=== PATIENT | female | born 1985 | race Caucasian/White ===

== ENCOUNTER 2024-11-03 17:00 | Emergency (ER) | payer BC, SELFPAY ==
--- NOTE | ~2024-11-03 | XR_ITS ---
CLINICAL HISTORY: pain 3 view left shoulder Comparison: None Findings: Bones intact. No dislocations. No significant arthritic change. No erosions. No radiopaque foreign body. IMPRESSION: 1. No acute findings This document has been electronically signed by: Thomas Medina MD on 11/03/2024 19:06:56
--- NOTE | ~2024-11-03 | XR_ITS ---
CLINICAL HISTORY: pain 4 views cervical spine Comparison: None Findings: Normal alignment. No acute fractures or dislocation. No significant degenerative change. Prevertebral soft tissues within normal limits. IMPRESSION: No acute findings. This document has been electronically signed by: Thomas Medina MD on 11/03/2024 19:09:13
[2024-11-03 18:07] VITALS: BP 162/97; PULSE 89; RESP 18; TEMP 36.8; O2SAT 98; BMI 47.1
--- NOTE | 2024-11-03 18:16 | ED.GENADULT ---
HPI - General Adult General Chief complaint: General Medical Stated complaint: ? stroke left arm numbness Time Seen by Provider: 11/03/24 22:58 Source: patient Mode of arrival: ambulatory Limitations: no limitations History of Present Illness ED Provider: Rodrigo Lizama DO HPI narrative: 39-year-old female with past medical history of iron-deficiency anemia and migraine headaches (follows up with Dr. Amor from Neurology) as well as several weeks of intermittent left arm paresthesias that radiate from her left shoulder to her left elbow and typically resolve spontaneously after several minutes presents to the ED for a recurrent episode today at 11:30 this morning that resolves by noon. The patient is right-hand dominant. She denies any clear pattern to her symptoms. She denies headache today, neck pain, numbness of the arm, weakness of the arm or any additional neurologic symptoms. Related Data Allergies Allergy/AdvReac Type Severity Reaction Status Date / Time SHELLFISH Allergy Unknown ITCHING Uncoded 11/03/24 18:10 Review of Systems Review of Systems: Yes all other systems are reviewed and are negative PMFSH Social History Social History Smoked in Last 30 Days: No Use of substances other than those prescribed or required for medical reasons: No Advance Directives: No Advance Directives Information Provided: Yes Physical Exam ED Vital Signs: Vital Signs - 24 hr 11/03/24 18:07 11/03/24 22:16 11/03/24 23:25 Temperature 98.2 F 97.8 F 97.8 F Pulse Rate 89 89 89 Respiratory Rate 18 16 16 Blood Pressure 162/97 H 165/92 H 165/92 H Pulse Oximetry 98 98 98 Oxygen Delivery Method Room Air Room Air Room Air BMI result Body Mass Index 47.1 Constitutional: ?Alert, oriented, speaking in full sentences HEENT: ?Normocephalic, atraumatic. Eyes: ?PERRL, EOMI Neck: ?Supple, nontender Respiratory: no increased work of breathing Cardio: ? 2+ radial pulses symmetrically Skin: ?No rash, no lesions Neuro: ?Alert and oriented to person, place and time, moves all 4 extremities, no focal deficits, no numbness or weakness noted specifically of the upper extremities bilaterally both 5/5 strength with sensation fully intact. Normal gait without ataxia or antalgia Extremities: ?No swelling or tenderness, full range of motion Psych: ?Calm, alert and cooperative, appropriate behavior Course Course Course Narrative: This is a rapid medical exam performed by Audra Peck PA-C. The patient is a 39-year-old female with a history of morbid obesity, hypothyroidism, diabetes who presents with paresthesias of left upper extremity x2 months. Her symptoms have been intermittent, she states she develops the sensation from the shoulder to the elbow. Denies neck pain, she does perform repetitive activity, she states she knits. We will be screening basic labs, obtaining an x-ray of the neck and the shoulder, this is likely radicular symptoms. She is stable and can return to the waiting room pending her full medical assessment. Medical Decision Making Medical Decision Making [facility] Narrative: Patient presenting with intermittent left upper arm paresthesias not consistent with spinal cord compression or even nerve root compression as the symptoms only extend to the elbow. She has an unremarkable neurologic exam and no symptoms since noon today. She has close follow up with a neurologist. We discussed possible further testing with electromyography and provided clear return precautions. Patient agrees with plan. Labs reviewed and are grossly unremarkable including a borderline leukocytosis, mild anemia of 11.4 with no previous which appears microcytic, mild hyperglycemia with history of diabetes otherwise unremarkable including hepatic function and beta hCG. There is a mild hypomagnesemia at 1.6. Imaging of the left shoulder and cervical spine showed no acute findings. Admission/Observation Consideration of admission/observation: Escalation of care including admission/observation considered Lab Data [facility] Lab Attestation statement: I reviewed the patient's lab results. 11/03/24 19:33 11/03/24 19:33 Labs: Lab Results 11/03/24 Range/Units 19:33 WBC 12.8 H (4.8-10.8) X10*3/uL RBC 4.60 (4.20-5.50) X10*6/uL Hgb 11.4 L (12.0-16.0) g/dl Hct 35.8 L (37.0-47.0) % MCV 77.8 L (80.0-98.0) fL MCH 24.8 L (27.0-33.0) pg MCHC 31.8 (31.0-35.0) g/dl RDW 14.8 (11.0-16.0) % Plt Count 368 (160-400) X10*3/uL MPV 10.2 (9.4-12.3) fL Immature Gran % (Auto) 0.3 (0.0-0.4) % Neut % (Auto) 60.7 (45-73) % Lymph % (Auto) 31.3 (20-40) % Monroe % (Auto) 6.0 (2-11) % Eos % (Auto) 1.3 (0-4) % Baso % (Auto) 0.4 (0-2) % Lymph # (Auto) 4.0 (1.2-4.9) X10*3/uL Monroe # (Auto) 0.8 (0.1-1.2) X10*3/uL Eos # (Auto) 0.2 (0.0-0.4) X10*3/uL Baso # (Auto) 0.1 (0.0-0.2) X10*3/uL Abs Immat Gran (auto) 0.04 H (0.00-0.03) X10*3/uL Absolute Neuts (auto) 7.8 (2.0-8.3) x10*3/uL Absolute Nucleated RBC 0.000 (0.0-0.012) X10*3/uL Nucleated RBC % (auto) 0.0 (0.0-0.2) /100WBC Sodium 139 (135-145) mmol/L Potassium 4.3 (3.3-5.1) mmol/L Chloride 108 (96-108) mmol/L Carbon Dioxide 23 (22-29) mmol/L Anion Gap 12 (12-20) BUN 10 (9-16) mg/dL Creatinine 0.78 (0.5-1.4) mg/dL Estim Creat Clear Calc 128.7 Estimated GFR > 60 Random Glucose 178 H (60-115) mg/dL Calcium 9.1 (8.4-10.2) mg/dL Magnesium 1.6 (1.6-2.6) mg/dL Total Bilirubin 0.2 (0.0-1.0) mg/dL AST 21 (5-31) U/L ALT 18 (0-31) U/L Alkaline Phosphatase 71 (39-117) U/L Total Protein 7.0 (6.5-8.0) g/dL Albumin 3.6 (3.5-5.0) g/dL Beta HCG, Quant < 2 mIU/mL Discharge Plan Discharge Clinical Impression: Arm paresthesia, left Patient Disposition: Home, Self-Care Instructions: Paresthesia (ED) Additional Instructions: Although your workup is unremarkable and your exam is reassuring today, we are unsure as to what is causing your symptoms. As discussed, please keep a log at home to discuss with your neurologist and follow up as scheduled. It is possible that they may recommend further testing such as EMG testing for further evaluation. Return to the ER if you have any worsening symptoms that do not resolve or any other development of concerning symptoms. Referrals: Dale Amor III, MD [Primary Care Provider] - (Seen in the ED for intermittent left upper arm paresthesias that ends at the elbow without neck pain. X-ray of cervical spine and shoulder performed in triage was negative. Symptoms resolved spontaneously.) Interventions: ED Discharge Assessment Last Done: 11/03/24 23:25 Discharge Date/Time: 11/03/24 23:25 Print Language: Belgian
[2024-11-03 19:45] LABS: MANUAL DIFF FLAG NO
[2024-11-03 19:46] LABS: Basophils Absolute Auto 0.1 X10*3/uL (0.0-0.2); Basophils Percent Auto 0.4 % (0-2); Eosinophils Absolute Auto 0.2 X10*3/uL (0.0-0.4); Eosinophils Percent Auto 1.3 % (0-4); Hematocrit 35.8 % (37.0-47.0); Hemoglobin 11.4 g/dl (12.0-16.0); Imm Gran Abs Auto 0.04 X10*3/uL (0.00-0.03); Imm Gran Pct Auto 0.3 % (0.0-0.4); Lymphocytes Percent Auto 31.3 % (20-40); Mean Corpuscular HGB Conc 31.8 g/dl (31.0-35.0); Mean Corpuscular Hemoglobin 24.8 pg (27.0-33.0); Mean Corpuscular Volume 77.8 fL (80.0-98.0); Mean Platelet Volume 10.2 fL (9.4-12.3); Monocytes Absolute Auto 0.8 X10*3/uL (0.1-1.2); Neutrophils Absolute Auto 7.8 x10*3/uL (2.0-8.3); Neutrophils Percent Auto 60.7 % (45-73); Platelet Count 368 X10*3/uL (160-400); Red Cell Distribution Width 14.8 % (11.0-16.0); White Blood Count 12.8 X10*3/uL (4.8-10.8)
[2024-11-03 20:07] LABS: Alanine Aminotransferase 18 U/L (0-31); Albumin Level 3.6 g/dL (3.5-5.0); Alkaline Phosphatase 71 U/L (39-117); Anion Gap 12 (12-20); Aspartate Amino Transferase 21 U/L (5-31); Bilirubin Total 0.2 mg/dL (0.0-1.0); Blood Urea Nitrogen 10 mg/dL (9-16); Calcium 9.1 mg/dL (8.4-10.2); Carbon Dioxide 23 mmol/L (22-29); Chloride 108 mmol/L (96-108); Creatinine Clr Calc Pharmacy 128.7; Estimated Glomerular Filt Rate > 60; Glucose Random 178 mg/dL (60-115); Magnesium 1.6 mg/dL (1.6-2.6); Potassium 4.3 mmol/L (3.3-5.1); Sodium 139 mmol/L (135-145)
[2024-11-03 20:11] LABS: HCG Quantitative < 2 mIU/mL
[2024-11-03 22:16] VITALS: BP 165/92; PULSE 89; RESP 16; TEMP 36.6; O2SAT 98
[2024-11-03 23:25] VITALS: BP 165/92; PULSE 89; RESP 16; TEMP 36.6; O2SAT 98
== END 2024-11-03 23:25 | disposition home or self-care (01) ==
PROVIDERS: Physician Assistant Medical; Emergency Provider Emergency Medicine; PCP Internal Medicine
DX: R20.0 Anesthesia of skin (principal); M25.512 Pain in left shoulder; M54.2 Cervicalgia; R10.2 Pelvic and perineal pain; Z79.899 Other long term (current) drug therapy
CPT/HCPCS: 36415; 72040; 73030; 80053; 83735; 84702; 85025; 99283; 99284

== ENCOUNTER → 2024-11-03 18:09 | Outpatient (BNV) | payer BC, SELFPAY | PROVIDERS: PCP Internal Medicine; Visit Provider Radiology Diagnostic Radiology | DX: M54.2 Cervicalgia (principal); M25.512 Pain in left shoulder | CPT/HCPCS: 72040; 73030 ==

== ENCOUNTER 2025-03-30 08:17 | Outpatient (AMB) | payer BC, SELFPAY ==
--- NOTE | 2025-03-30 08:25 | A.OFFVIS_ITS ---
Vital Signs 03/30/25 08:25 Height 5 ft 4 in Intake Visit Reasons: 6 month f. u Allergies SHELLFISH Allergy (Unknown, Uncoded 03/30/25 08:28) ITCHING Medication List - Last Reconciled 03/27/25 by Catalina Luz CNP citalopram 10 mg PO DAILY dulaglutide (Trulicity) 4.5 mg subcut QWEEK insulin glargine (Lantus Solostar U-100 Insulin) 26 - 30 units subcut BEDTIME levothyroxine 175 mcg PO DAILY loratadine 10 mg PO DAILY naproxen 500 mg PO Q12H PRN sumatriptan succinate 100 mg PO DAILY HPI Comments Details: 40-year-old woman with hyperlipidemia, hypothyroidism, and diabetes, who had migraines between the ages of [age] that went into remission until 02/2024 when headaches started to recur 1-2x/month. She went to [facility] in 10/2024 and [facility] in 11/2024 for decreased sensation from left shoulder to left elbow. It lasted a few hours. She apparently had CT and MRI at [facility] without findings. She does not recall having headache at the time. She had 1 migraine in 01/2025 with LUE parasethesia that was relieved with sumatriptan and naproxen. Sleep was good. [facility] Medical History (Updated 03/30/25 @ 08:27 by Catalina Luz CNP) Diabetes mellitus Migraine Review of Systems Const Denies chills, Denies daytime sleepiness, Denies difficulty sleeping, Denies fatigue, Denies fever(s), Denies frequent falls, Reports headache(s), Denies increased appetite, Denies poor appetite, Denies snoring, Denies weakness, Denies weight gain and Denies weight loss Eyes Denies loss of vision ENT Denies vertigo, Denies dizziness, Reports headache(s) and Denies neck pain Card Denies chest pain at rest, Denies chest pain with activity, Denies syncope, Denies leg edema, Denies palpitations, Denies dyspnea and Denies dyspnea on exertion Resp Denies cough, Denies dyspnea, Denies dyspnea on exertion and Denies snoring GI Denies abdominal pain, Denies constipation, Denies heartburn, Denies diarrhea and Denies nausea Denies urinary frequency, Denies urinary incontinence and Denies urinary urgency Musc Denies abnormal gait, Denies back pain, Denies myalgias, Denies arthralgias, Denies neck pain, Denies numbness and Denies tingling Neuro Denies abnormal gait, Denies vertigo, Denies dizziness, Denies syncope, Denies frequent falls, Reports headache(s), Denies lack of coordination, Denies loss of vision, Denies memory loss, Denies numbness, Denies Other visual disturbances, Denies restless legs, Denies seizure-like activity, Denies tingling, Reports paresthesias, Denies tremor(s) and Denies weakness Psych Denies anxiety, Denies depression, Denies auditory hallucinations, Denies memory loss and Denies visual hallucinations Endo Denies fatigue and Denies palpitations Physical Exam Const Other: General Appearance:? normal, in no acute distress. Heart:? S1, S2 normal, no murmurs. Lungs:? clear anteriorly and posteriorly. Musculoskeletal:? normal. Extremities:? no edema. Psych:? alert, oriented, cognitive function intact, cooperative with exam. Neuro Other: Abnormal Neurological Findings:?none.? Mental Status: alert and oriented X 3. Normal attention, orientation, memory, and affect. Cranial Nerves: Pupils are equal, round, and reactive to light. External ocular muscles are intact. Visual curiel are full, no ptosis. Face is symmetrical, no facial weakness or droop. Facial sensations are normal. Tongue protrudes in midline. Palate elevates symmetrically. Shoulder shrugging is normal Motor Examination: Normal muscle tone, bulk and strength. No atrophy or fasciculations. No drift of the extended upper extremities. DTR 2+. Plantars are flexor. Sensory Exam: Normal light touch, temperature, pinprick, vibration, and joint- position sensations. Rhomberg sign is absent. Coordination: No ataxia. No titubation. Vxdsgh-sk-wyud, thhh-qtwo-gnxg test, and rapid alternating movements were normal. Gait Exam: Within normal limits. Cerebellar Signs: Eushmb-ht-uhel and tetz-ek-cdhc is normal. No dysdiadochokinesia. Extrapyramidal System: No tremor, rigidity with normal facial expressions. No bradykinesia. No bradyphrenia. Normal arm swing and posture. No propulsion or retropulsion. Speech: Normal. No dysphasia or dysarthria. Results Reviewed Results Reviewed: [address] [address] XRay Report Signed Patient: Jerardo Carey MR#: [id number] : 1985 Acct:[id number] Age/Sex: 39 / F ADM Date: 11/03/24 Loc: HO.ED Attending Dr: Ordering Physician: Audra Peck Date of Service: 11/03/24 Procedure(s): XR cervical spine 2V Accession Number(s): [id number] cc: Dale Amor III, MD; Audra Peck~ CLINICAL HISTORY: pain 4 views cervical spine Comparison: None Findings: Normal alignment. No acute fractures or dislocation. No significant degenerative change. Prevertebral soft tissues within normal limits. IMPRESSION: No acute findings. This document has been electronically signed by: Thomas Medina MD on 11/03/2024 19:09:13 Laboratory Tests 11/03/24 19:33 WBC 12.8 H RBC 4.60 Hgb 11.4 L Hct 35.8 L MCV 77.8 L MCH 24.8 L MCHC 31.8 RDW 14.8 Plt Count 368 MPV 10.2 Sodium 139 Potassium 4.3 Chloride 108 Carbon Dioxide 23 Anion Gap 12 BUN 10 Creatinine 0.78 Estimated GFR > 60 Random Glucose 178 H Calcium 9.1 Magnesium 1.6 Total Bilirubin 0.2 AST 21 ALT 18 Alkaline Phosphatase 71 Total Protein 7.0 Albumin 3.6 Assessment & Plan Assessment & Plan (1) Migraine: Code(s): G43.909 - Migraine, unspecified, not intractable, without status migrainosus Category: Medical Qualifiers: Migraine type: unspecified Status migrainosus presence: without status migrainosus Intractability: not intractable Qualified Code(s): G43.909 - Migraine, unspecified, not intractable, without status migrainosus Plan: Results from [facility] reviewed, will request records from [facility]. Continue naproxen 500mg 1 tablet q12h as needed for migraine. She was advised to stop sumatriptan. Coding Level of Care Code Est Pt Level 4 (53074) Diagnoses Migraine without status migrainosus, not intractable, unspecified migraine type G43.909 Migraine type: unspecified Status migrainosus presence: without status migrainosus Intractability: not intractable
--- OUTSIDE RECORDS SUMMARY | 2025-03-30 08:38 | XMS_ITS | Encounter Summary ---
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 No / Unsure 07/22/2021 8:20 AM EST documented as of this encounter Miscellaneous Notes * Telephone Encounter - Ramandeep Anthony - 07/21/2021 11:14 AM EST Auth Number #[id number] Visits 11 Start 07/22/2021-07/22/2022 Provider MIKEY SHERWOOD * Telephone Encounter - [facility] - 07/21/2021 10:37 AM EST Request for a referral to a [facility] Specialist for a patient with a [facility] PCP. If patient does NOT have a [facility] PCP they must obtain a referral from their PCP before being seen-do not submit request to Referrals department-contact patient. 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 Date of appoinment: 07/22/21 If retro, date referral needs to start: stefanie Amor Payor: [employer] FFS / Plan: HMO $30 [employer]WAREN [id number] / Product Type: HMO PRE-PAID documented in this encounter Plan of Treatment Not on file documented as of this encounter Visit Diagnoses Not on filedocumented in this encounter Additional Health Concerns Infection Onset Date Last Indicated Resolved Time COVID-19 06/26/2023 06/26/2023 documented as of this encounter Care Teams Video Manager Relationship Specialty Start Date End Date Dale Amor MD [address] [place] [id number] PCP - General Internal Medicine 02/23/21 documented as of this encounter
--- OUTSIDE RECORDS SUMMARY | 2025-03-30 08:39 | XMS_ITS | Clinical Summary ---
Author Organization [facility] [address] [place] [address] [place] [phone] Phone Care Team Providers Care Shellfish Grower Name Role Phone Dale Amor MD Primary Care Provider [phone] Allergies Active Allergy Reactions Criticality Noted Date Comments Shellfish Derived Itching 06/02/2013 Medications SUMAtriptan (IMITREX) 50 mg tablet TAKE 1 TABLET BY MOUTH DAILY FOR MIGRAINE HEADACHE.MAY REPEAT DOSE ONCE AFTER 2 HOURS, IF NEEDED. 01/05/20 22 Active FREESTYLE LANCETS MISC Use to test blood sugar tid 11/18/19 21 Active levonorgestreL (MIRENA) 21 mcg/24 hr (8 yrs) 52 mg IUD 1 Each by Intrauterine route Once. 10/28/19 23 028 Active metFORMIN (GLUCOPHAGE) 1,000 mg tabletIndications :Type 2 diabetes mellitus without complications ([facility] V24, CMS/[facility] V28) TAKE 1 TABLET BY MOUTH TWICE A DAY 180 tablet 1 07/17/20 24 Active fluocinonide (LIDEX) 0.05 % ointmentIndicatio ns:Lichen simplex chronicus,Lichen sclerosus et atrophicus APPLY A THIN LAYER TOPICALLY SUNDAY, SUNDAY, SUNDAY 30 g 1 09/19/19 25 Active BD Ultra-Fine Short Pen Needle 31 gauge x 5/16 needleIndications :Type 2 diabetes mellitus with hyperglycemia (CMS/HCC V24, CMS/[facility] V28) USE TO INJECT INSULIN ONCE DAILY 100 each 3 12/13/19 25 Active levothyroxine (SYNTHROID, LEVOTHROID) 175 mcg tablet Take 1 tablet (175 mcg total) by mouth 1 (one) time each day. 30 each 11 12/27/19 25 026 Active blood-glucose sensor (FreeStyle Estuardo 3 Plus Sensor) device Use one sensor every 15 days E11.9 6 each 1 12/27/19 25 Active dulaglutide (Trulicity) 4.5 mg/0.5 mL pen injector injectionIndicati ons:Type 2 diabetes mellitus without complication, without long-term current use of insulin ([facility] V24, [facility] V28) Use 4.5mg once weekly 3 mL 5 12/27/19 25 Active insulin glargine (Lantus Solostar U-100 Insulin) 100 unit/mL (3 mL) injection pen INJECT 36-40 UNITS INTO THE SKIN AT BEDTIME 30 mL 2 12/27/19 25 Active EPINEPHrine (EpiPen 2-Yordy) 0.3 mg/0.3 mL injection Inject 0.3 mL (0.3 mg total) into the thigh 1 (one) time for 1 dose. 1 each 01/16/20 25 Active loratadine (CLARITIN) 10 mg tablet Take 1 tablet (10 mg total) by mouth 1 (one) time each day. 60 tablet 01/29/20 25 Active citalopram (CeleXA) 10 mg tablet Take 1 tablet (10 mg total) by mouth 1 (one) time each day. 90 tablet 1 02/25/20 25 025 Active cholecalciferol (VITAMIN D-3) 50 mcg (2,000 unit) tablet Take 1 tablet (2,000 Units total) by mouth 1 (one) time each day. 90 tablet 1 03/26/20 25 Active Active Problems Problem Noted Date Diagnosed Date Insomnia 05/15/2024 Morbid obesity with BMI of 4 5.0-49.9, adult ([facility] V24, [facility] V28) 05/15/2024 Breakthrough bleeding with IUD 01/22/2024 Overview (05/15/2024): Last Assessment & Plan: If this continues to provide a challenge for skin care, despiet planned improvements, can discuss another method of menstrual suppression. IUD threads lost 11/07/2022 Overview (05/15/2024): Last Assessment & Plan: Pelvic US ordered. Pt agrees to schedule. Dysmenorrhea 10/13/2022 Overview (05/15/2024): Last Assessment & Plan: I counseled Jerardo that there are several options for management of her symptoms. I know that she has tried OCP in the past, but never continuously. Given she has no absolute contraindications to combined pill, I recommended she consider this or Mirena IUD to help with periods, dysmenorrhea and protect her endometrial lining in the setting of PCOS. She was not interested in trying another pill. She was open to considering Mirena IUD. I explained ideally we could avoid surgery altogether if the Mirena helps her, but at the very least, she would need to get her diabetes and thyroid disease under better control before proceeding. She is also morbidly obese which increased risk of infection, surgical complications. She voiced understanding and agreed. She will return with her period to have her Mirena placed. Encouraged ibuprofen ahead of appt. Non compliance w medication regimen 10/06/2022 PCOS (polycystic ovarian syndrome) 12/19/2021 Overview (05/15/2024): Last Assessment & Plan: Patient had heard of PCOS from previous office notes from various providers, but was not previously counseled about it. She meets criteria for PCOS by [place] criteria of oligomenorrhea and hirsutism. She is on norethindrone for menstrual regulation for this, but it is not clearly documented. She was counseled today re: implications of PCOS including irregular ovulation which can lead to endometrial hyperplasia or malignancy, and also subfertility or infertility. I explained that her periods may continue to be irregular while on Micronor. This is acceptable as lining is being kept thin. I also reviewed manager terminal risks of cardiovascular disease. Explained diabetes is very common in PCOS. I recommended weight loss to help with resumption of regular menses, but in the meantime, she will stay on norethindrone. Recurrent vaginitis 09/29/2021 Overview (05/15/2024): Last Assessment & Plan: Likely secondary to poorly controlled blood sugars. I recommended she work on getting sugars under control. Yeast culture sent for speciation. Start fluconazole. Lichen simplex chronicus 07/22/2021 Overview (05/15/2024): Last Assessment & Plan: Overall well controlled. Would probably be better if sugars were well controlled. Explained to patient. She needs to get it under better control. She was encouraged to continue hydroxyzine prn, topical steroid MWF and increase to nightly with period with coconut oil between doses, and use cotton unscented pads. Cholelithiasis 11/30/2020 Fatty liver 11/30/2020 Overview (05/15/2024): Elevated LFTs. US abdomen showing cholelithiasis/fatty liver. Hyperlipidemia 05/15/2017 Type 2 diabetes mellitus wit hout complication, without long-term current use of insulin ([facility] V24, [facility] V28) 2017 Overview (05/15/2024): Last Assessment & Plan: I strongly encouraged Jerardo to continue working on her sugars. She agrees. Lichen sclerosus 01/21/2014 Overview (05/15/2024): Biopsy 01/2014 with one area c/w LP and other area c/w LS. Clinically c/w LS. Last Assessment & Plan: Reasonably well controlled. Continue MWF Lidex. Vitamin D deficiency 06/03/2013 Anxiety 06/02/2013 Hypothyroid 06/02/2013 Migraines 06/02/2013 Immunizations Name Administration Dates Next Due Influenza Quadravalent, MDCK , 0.5ml, preservative free (Flucelvax) 6mo and older 10/10/2021,07/28/2019,05/20/2018 Influenza trivalent, with pr eservative (Fluzone; Afluria) 6mo and older 06/10/2020,04/24/2016,05/25/2014,06/02,05/24/2011 Pneumococcal polysaccharide 23 valent (Pneumovax 23) 2yo and older 11/29/2011 Tdap Tetanus diptheria acell ular pertussis (Boostrix; Adacel) 7yo and older 03/25/2024,06/02/2013 Surgical History Surgery Date Site/Laterality Comments APPENDECTOMY 2000 PROCEDURE: AK APPENDEC INDICATED PURPOSE OTH MAJOR PX NOT SPX; COMMENT: 2000 Medical History Medical History Date Comments Diabetes mellitus type II DX:Josy betes mellitus type II Hypothyroidism DX:Hypothyroidis m Anxiety DX:Anxiety Obesity DX:Obesity Migraine DX:Migraine Insomnia DX:Insomnia Morbid obesity (CMS/HCC V24, CMS/HCC V28) DX:Morbid obesity (HCC) Ovarian cyst DX:Ovarian cyst BRCA1 negative 11/2013 DX:BRCA1 negativ e Adhd DX:ADHD Family History Medical History Relation Name Comments Other: BRCA1 positive Aunt 1 breast cancer at age 4202-wrct-hrbcvyscv-mate rnal Other: BRCA1 positive Aunt 2 breast cancer at age 40-maternal Other: BRCA1 negative Aunt 3 no can cer Breast cancer Aunt 4 No Known Problems Brother Throat cancer Father at 53 was a smoker, etoh No Known Problems Maternal Grandfather Cataracts Maternal Grandmother Glaucoma Maternal Grandmother Hypertension Maternal Grandmother Uterine cancer Maternal Grandmother and o varian at age 80; BRCA 1 positive Hyperthyroidism Mother benign breas t lump Other: Other Mother abnormal colono scopy Other: nonhodgkin's lymphoma Other 1 -maternal first cousin No Known Problems Other 2 Other: other-[id number] Other 3 d aughter of # 10-her brother not tested Other: BRCA1 negative Other 4 matern al 1st cousin-father is #6-bros not tested Other: BRCA1 positive Other 5 matern al first cous preventive mastectomy at age 19 Other: MVA Other 6 Breast cancer Other 7 Maternal cousin Invasive Du ctal stage 1 tripple neg No Known Problems Paternal Grandfather Diabetes Paternal Grandmother Other: BRCA 1 positive Uncle had p rostate cancer at age 3533-[id number]-cwoe neg Blindness Neg Hx Colon cancer Neg Hx Macular degeneration Neg Hx Pancreatic cancer Neg Hx Strabismus Neg Hx Relation Name Status Comments Aunt 1 Aunt 2 Aunt 3 Alive Aunt 4 Brother Father throat cancer, Maternal Grandfather Maternal Grandmother Mother Alive Other 1 Other 2 Other 3 Other 4 Other 5 Other 6 Other 7 Maternal cousin Alive Paternal Grandfather Paternal Grandmother Alive Uncle Social History Tobacco Use Types Packs/Day Years Used Date Smoking Tobacco: Never Smokeless Tobacco: Never Tobacco Cessation:Counseling Given: Not Answered Alcohol Use Standard Drinks/Week Comments No 0 (1 standard drink = 0.6 oz pur e alcohol) Comments No Sex and Gender Information Value Date Recorded Sex Assigned at Not on file Legal Sex Female 6:39 AM EST Gender Identity Not on file Sexual Orientation Not on file Obstetrics History Last Filed Vital Signs Vital Sign Reading Time Taken Comments Blood Pressure 123/88 12/26/2024 10:18 AM EDT Pulse 93 12/26/2024 10:18 AM EDT Temperature 36.4 C (97.5 F) 12/26/2024 10:18 AM EDT Respiratory Rate 14 12/26/2024 10:18 AM EDT Oxygen Saturation 99% 12/26/2024 10:18 AM EDT Inhaled Oxygen Concentration - - Weight 122 kg (270 lb) 12/26/2024 10:18 AM EDT Height 162.6 cm (5' 4 ) 12/26/2024 10:18 AM EDT Body Mass Index 46.35 12/26/2024 10:18 AM EDT Plan of Treatment Upcoming Encounters Date Type Department Care Team (Late st Contact Info) Description 04/10/2025 8:30 AM EDT Office Visit Adult Medicine [address] [phone] Dale Amor MD [address] [place] [phone] 07/13/2025 8:20 AM EST Office Visit [address] [phone] Elissa Carvajal PA [address] [place] [address] Health Maintenance Due Date Last Done Comments Hepatitis B Vaccines (1 of 3 - 19+ 3-dose series) 2006 Pneumococcal Vaccine: Pediatrics (0 to 5 Years) and At-Risk Patients (6 to 49 Years) (2 of 2 - PCV) 11/28/2012 11/29/2011, 11/29/2011 Social Influencers of Health Screening 07/22/2022 COVID-19 Vaccine ( season) 2024 07/13/2021, 11/16/2020, 10/25/2020 Depression Screening 08/13/2024 Diabetes: Annual Foot Exam 03/25/2025 03/25/2024 Influenza Vaccine (#1) 2025 , 10/10/2021, 06/10/2020, Additional history exists Diabetes: Annual Retina Eye Exam 05/02/2025 05/02/2024 Diabetes: Blood Sugar Control Test (HGBA1C) 06/26/2025 12/24/2024, 09/23/2024, 06/24/2024, Additional history exists Diabetes: Annual Urine Albumin-Creatinine Ratio (uACR) 12/24/2025 12/24/2024, 12/14/2023 Diabetes: Annual GFR (Glomerular Filtration Rate) 12/24/2025 12/24/2024, 06/24/2024, 03/25/2024, Additional history exists Cervical Cancer Screening: HPV 12/20/2028 12/21/2023 Cholesterol Screening (Lipid Panel) 12/01/2029 12/01/2024, 03/25/2024, 03/25/2024, Additional history exists DTaP,Tdap,and Td Vaccines (3 - Td or Tdap) 03/25/2034 03/25/2024, 06/02/2013 HIV Screening Completed 11/17/2013 Hepatitis C Screening Completed 03/05/2021 HIB Vaccines Aged Out No longer eligi ble based on patient's age to complete this topic HPV Vaccines Aged Out No longer eligi ble based on patient's age to complete this topic Hepatitis A Vaccines Aged Out No long er eligible based on patient's age to complete this topic IPV Vaccines Aged Out No longer eligi ble based on patient's age to complete this topic MMR Vaccines Aged Out No longer eligi ble based on patient's age to complete this topic Meningococcal ACWY Vaccine Aged Out N o longer eligible based on patient's age to complete this topic Meningococcal B Vaccine Aged Out No l onger eligible based on patient's age to complete this topic RSV Immunization Patients Under 20 months Aged Out No longer eligible based on patient's age to complete this topic Varicella Vaccines Aged Out No longer eligible based on patient's age to complete this topic Goals Goal Patient Goal Type Associated Problems Recent Progress Patient-Stated? Author No pain General Improving(10/21 8:30 AM EDT) Yes Juanito Lamb, PT Procedures Procedure Name Priority Date/Time Associated Diagnosis Comments VITAMIN D 25 HYDROXY Routine 03/24/2025 9:44 AM EDT Vitamin D deficiency MICROALBUMIN CREATININE URINE RATIO Routine 12/24/2024 9:09 AM EDT Type 2 diabetes mellitus without complication, without long-term current use of insulin ([facility] V24, [facility] V28) COMPREHENSIVE METABOLIC PANEL Routine 12/24/2024 8:39 AM EDT Type 2 diabetes mellitus without complication, without long-term current use of insulin (CMS/HCC V24, CMS/[facility] V28) HEMOGLOBIN A1C Routine 12/24/2024 8:39 AM EDT Type 2 diabetes mellitus without complication, without long-term current use of insulin ([facility] V24, CMS/HCC V28) DIABETES EYE EXAM Routine 05/02/2024 LIPID PANEL Routine 03/25/2024 DIABETES FOOT EXAM Routine 03/25/2024 HPV Routine 12/21/2023 HEPATITIS C SCREENING Routine 03/05/2021 HIV SCREENING Routine 11/17/2013 from Last 3 Months or Most Recently Relevant to Health Maintenance Results * Vitamin D 25 hydroxy (03/24/2025 9:44 AM EDT) Vit D, 25-Hydroxy 39.9 30.0 - 80.0 ng/mL LAB CHEMISTRY METHOD 03/24/2025 1:32 PM EDT [facility] Blood Venous blood specimen / Unknown Venipuncture / Unknown 03/24/2025 9:44 AM EDT 03/24/2025 9:44 AM EDT Dale Amor MD LAB BLOOD ORDERABLES Final Resu lt Performing Organization Address [facility]/ZIP Co de Phone Number [facility] [address] [place] [address], [place] [phone] * (ABNORMAL) Microalbumin creatinine urine ratio (12/24/2024 9:09 AM EDT) Creatinine, Urine 279.0 mg/dL LAB CHEMISTRY METHOD 12/24/2024 11:51 AM EDT [facility] Microalb, Ur 88.7(H) 0.0 - 29.0 mg/L LAB CHEMISTRY METHOD 12/24/2024 11:51 AM EDT [facility] Microalb/Crea t Ratio 32(H) <30 mg/g creat LAB CHEMISTRY METHOD 12/24/2024 11:51 AM EDT [facility] Urine Urine specimen obtained by clean catch procedure / Unknown Non-blood Collection / Unknown 12/24/2024 9:09 AM EDT 12/24/2024 9:09 AM EDT Elissa GRIDER LAB URINE ORDERABLES Final Resul t Performing Organization Address [facility]/ZIP Co de Phone Number [facility] [address] [place] [address], [place] [phone] * (ABNORMAL) Hemoglobin A1c (12/24/2024 8:39 AM EDT) Hemoglobin A1C 11.6(H) <6.5 % LAB CHEMISTRY METHOD 12/24/2024 11:23 AM EDT [facility] Mean Bld Glu Estim. 286 mg/dL LAB CHEMISTRY METHOD 12/24/2024 11:23 AM EDT [facility] Blood Venous blood specimen / Unknown Venipuncture / Unknown 12/24/2024 8:39 AM EDT 12/24/2024 8:39 AM EDT us Elissa GRIDER LAB BLOOD ORDERABLES Final Resul t [facility] [address] [place] [address], [place] [phone] * (ABNORMAL) Comprehensive metabolic panel (12/24/2024 8:39 AM EDT) Sodium 134 133 - 145 mmol/L LAB CHEMISTRY METHOD 12/24/2024 11:26 AM [facility] Potassium 4.0 3.5 - 5.5 mmol/L LAB CHEMISTRY METHOD 12/24/2024 11:26 AM [facility] Chloride 102 96 - 110 mmol/L LAB CHEMISTRY METHOD 12/24/2024 11:26 AM [facility] CO2 23 21 - 32 mmol/L LAB CHEMISTRY METHOD 12/24/2024 11:26 AM [facility] Anion Gap 9 3 - 11 LAB CHEMISTRY METHOD 12/24/2024 11:26 AM [facility] Glucose 204(H) 70 - 100 mg/dL LAB CHEMISTRY METHOD 12/24/2024 11:26 AM [facility] BUN 8 5 - 25 mg/dL LAB CHEMISTRY METHOD 12/24/2024 11:26 AM [facility] Creatinine 0.73 0.50 - 1.10 mg/dL LAB CHEMISTRY METHOD 12/24/2024 11:26 AM [facility] eGFR 109 >=60 mL/min/1. 73m2 LAB CHEMISTRY METHOD 12/24/2024 11:26 AM [facility] Comment:Calculation based on the Chronic Kidney Disease Epidemiology Collaboration (CKD-EPI) equation refit without adjustment for race. BUN/Creatinine Ratio 11.0 LAB CHEMISTRY METHOD 12/24/2024 11:26 AM [facility] Calcium 9.1 8.5 - 10.5 mg/dL LAB CHEMISTRY METHOD 12/24/2024 11:26 AM [facility] AST (SGOT) 13 10 - 42 unit/L LAB CHEMISTRY METHOD 12/24/2024 11:26 AM [facility] ALT (SGPT) 29 10 - 60 unit/L LAB CHEMISTRY METHOD 12/24/2024 11:26 AM [facility] Alkaline Phosphatase 84 42 - 121 unit/L LAB CHEMISTRY METHOD 12/24/2024 11:26 AM [facility] Total Protein 7.0 6.0 - 8.0 g/dL LAB CHEMISTRY METHOD 12/24/2024 11:26 AM [facility] Albumin 3.3 3.2 - 5.0 g/dL LAB CHEMISTRY METHOD 12/24/2024 11:26 AM [facility] Total Bilirubin 0.4 0.0 - 1.4 mg/dL LAB CHEMISTRY METHOD 12/24/2024 11:26 AM [facility] Blood Venous blood specimen / Unknown Venipuncture / Unknown 12/24/2024 8:39 AM EDT 12/24/2024 8:39 AM EDT Elissa GRIDER LAB BLOOD ORDERABLES Final Resul t [facility] [address] [place] [address], * Diabetes Eye Exam (05/02/2024) Pathologist [facility] Diabetes: Annual Retina Eye Exam Abstracted Historical Provider HEALTH MAINTENANCE Final Result * Diabetes Foot Exam (03/25/2024) [facility] Diabetes: Annual Foot Exam Abstracted [facility] Provider HEALTH MAINTENANCE Final Result * (ABNORMAL) Lipid panel (03/25/2024) [facility] LDL/HDL Ratio 4 0 - 4 Triglycerides 167(A) 0 - 150 mg/dL Cholesterol 198 0 - 200 mg/dL HDL 49 >=40 mg/dL LDL Cholesterol 116(A) 0 - 100 mg/dL Blood Venous blood specimen / Unknown [facility] Provider LAB BLOOD ORDERABLES Carla l Result * Cervical Cancer Screening: HPV (12/21/2023) [facility] Cervical Cancer Screening: HPV Negative, Abstracted Result [facility] Provider HEALTH MAINTENANCE Final Result * Hepatitis C Screening (03/05/2021) [facility] Hepatitis C Screening Abstracted [facility] Provider HEALTH MAINTENANCE Final Result * HIV Screening (11/17/2013) [facility] HIV Screening Abstracted [facility] Provider HEALTH MAINTENANCE Final Result from Last 3 Months or Most Recently Relevant to Health Maintenance Insurance [facility] Care Teams Shellfish Grower Relationship Specialty Start Date End Date Dale Amor MD [address] [place] [phone] (work) PCP - General Internal Medicine 02/23/21
--- OUTSIDE RECORDS SUMMARY | 2025-03-30 08:39 | XMS_ITS ---
Author Name [facility] Organization Unknown Care Team Organization Name Specialty Phone Email Start Date End [facility] GORGE NICE Primary Care 06/20/2022 4
== END 2025-03-30 08:42 | disposition home or self-care (01) ==
LOC: HO.HSM 08:18
PROVIDERS: PCP Internal Medicine; Referring Provider Internal Medicine; Visit Provider Registered Nurse
DX: G43.909 Migraine, unspecified, not intractable, without status migrainosus (principal)
CPT/HCPCS: 99214